=== PATIENT | female | born 1990 | race Caucasian/White ===

== ENCOUNTER 2019-06-27 20:43 | Emergency (ER) | payer OTHER ==
[~2019-06-27] VITALS: Ht 154.9 cm; Wt 91.2 kg
[2019-06-27 20:51] VITALS: Ht 154.9 cm; Wt 91.2 kg
[2019-06-27 21:44] LABS: BASOPHIL % 0.5 % (0-2); PLATELET COUNT 199 x10^3mcL (130-400); RED CELL DISTRIBUTION WIDTH 13.7 % (11.5-14.5)
[2019-06-27 21:59] LABS: CALCIUM 8.3 mg/dL (8.5-10.1); CARBON DIOXIDE 22.8 mmol/L (21-32); CHLORIDE SERUM 102 mmol/L (98-107); CREATININE SERUM 0.8 mg/dL (0.6-1.0); GFR1 > 60 mL/min; GLUCOSE SERUM 127 mg/dL (74-106); POTASSIUM SERUM 3.5 mmol/L (3.5-5.1); SODIUM SERUM 138 mmol/L (136-145)
[2019-06-27 22:04] LABS: ALKALINE PHOSPHATASE 113 U/L (46-116); ALT/SGPT 9 U/L (14-59); AST/SGOT 14 U/L (15-37); BILIRUBIN TOTAL 0.2 mg/dL (0.20-1.00); TOTAL PROTEIN, SERUM 7.3 g/dL (6.4-8.2)
[2019-06-27 22:06] LABS: ALBUMIN 3.2 g/dL (3.4-5.0)
[2019-06-27 23:26] VITALS: BP 134/88
== END 2019-06-28 05:04 | disposition home or self-care (01) ==
LOC: ED 20:43
DX: K52.9 Noninfective gastroenteritis and colitis, unspecified (principal)
CPT/HCPCS: J2405; J7030